=== PATIENT | female | born 1990 | race Caucasian/White ===

== ENCOUNTER 2016-07-17 19:23 | Emergency (ER) | payer OTHER ==
[~2016-07-17] VITALS: Ht 170.2 cm; Wt 109.1 kg
[2016-07-17 22:50] VITALS: BP 112/63
== END 2016-07-17 22:52 | disposition home or self-care (01) ==
LOC: EMS 19:27
DX: R21 Rash and other nonspecific skin eruption (principal)
CPT/HCPCS: 81025; 99282